=== PATIENT | male | born 1990 ===

== ENCOUNTER → 2020-07-24 | Outpatient (REF) | payer OTHER | LOC: M LAB REF 19:14 | PROVIDERS: ATTEND Urology | DX: Z30.2 Encounter for sterilization (principal) ==

== ENCOUNTER → 2020-11-04 | Outpatient (REF) | payer OTHER ==
[2020-11-04 11:25] LABS: SEMEN APPEARANCE OPAQUE (OPAQUE); SEMEN VISCOSITY LIQUID (LIQUID); SEMEN VOLUME 3.5 ml (2.0-5.0); WBC CONCENTRATION <=1 M/ml (<=1 M/ml)
== END ==
LOC: M SMT 10:14
PROVIDERS: ATTEND Urology
DX: Z30.2 Encounter for sterilization (principal)